=== PATIENT | male | born 1960 | race Caucasian/White ===

== ENCOUNTER 2016-10-13 09:23 | Inpatient (IN) | payer BC, OTHER ==
[2016-11-24] MEDS ORDERED: ceFAZolin SODIUM 1 GM VIAL IV PRN (06:00)
[2016-11-24] MEDS: RINGERS SOLUTION,LACTATED 1,000 ML IV PRN ×2 (07:23→08:15)
[2016-11-24] MEDS ORDERED: RINGERS SOLUTION,LACTATED 1,000 ML IV ONE (07:40)
[2016-11-24] MEDS: ROPIVACAINE HCL/PF 100 MG, EPINEPHrine 0.2 MG, KETOROLAC TROMETHAMINE 30 MG in NORMAL S... IJ PRN ×2 (08:39→09:15)
[2016-11-24] MEDS: TRANEXAMIC ACID 1,000 MG in NORMAL SALINE 100 ML IV PRN ×2 (08:39→09:15)
[2016-11-24] MEDS ORDERED: NALOXONE HCL 1 MG/1 ML SYRG IV PRN (09:44)
[2016-11-24] MEDS ORDERED: HYDROmorphone HCL 1 MG/ML DISP.SYRIN IV PRN (09:52)
[2016-11-24] MEDS ORDERED: MAGNESIUM HYDROXIDE 30 ML UDC PO PRN (09:52)
[2016-11-24] MEDS ORDERED: ONDANSETRON HCL/PF 2 MG/ML VIAL IV PRN (09:52)
[2016-11-24] MEDS ORDERED: diphenhydrAMINE HCL 50 MG/ML VIAL IV PRN (09:52)
[2016-11-24] MEDS ORDERED: PROMETHAZINE HCL 5 MG in DEXTROSE 5 % IN WATER 50 ML IV PRN ×2 (09:52)
[2016-11-24] MEDS ORDERED: ZOLPIDEM TARTRATE 5 MG TABLET PO PRN (09:52)
[2016-11-24] MEDS ORDERED: MAG HYDROX/ALUMINUM HYD/SIMETH 30 ML UDC PO PRN (09:52)
[2016-11-24] MEDS ORDERED: ACETAMINOPHEN 500 MG TABLET PO PRN (09:52)
--- NOTE | 2016-11-24 09:56 | OR ---
Operative Report - Dictated Report Narrative: Date: 11/24/2016 Preoperative diagnosis: Right Knee degenerative joint disease. Postoperative diagnosis: Right Knee degenerative joint disease. Procedure: Right Total knee arthroplasty. Surgeon: Jaime Ruby M.D. Lumber Tripper: Anuel Pandey PA-C Anesthesia: Spinal with regional block and local periarticular joint injection. Complications: None Specimens: Bone for disposal. Estimated blood loss: Minimal. Tourniquet time: 90 Minutes at 325 millimeters of mercury. Retained implants: Depuy Attune size 8 right lugged cemented posterior stabilized femoral component. Size 8 fixed-bearing cemented tibial platform. 8 by 6 millimeter posterior stabilized cross-linked tibial insert. 41 millimeter medialized patella button. Indications: Mr. Ortiz is a 56-year-old gentleman who has bilateral knee arthrosis and is having staged total knees. He had long-standing pain and wished to have his right followed by left total knee. This patient was followed in my clinic for period of time with significant complaints of right knee pain consistent with arthritic changes. They had failed conservative measures including, but not limited to, activity modification, passage of time, medications, and other conservative measures. Patient wished to proceed with surgical treatment. The risks, benefits, and alternatives were discussed in clinic. The risks of , blood clots, bleeding, infection, nerve/tendon blood vessel/ injury, malposition of components, intraoperative fracture, postoperative limited range of motion, persistent pain, failure of components, and need for additional procedures. Patient wished to proceed consent was obtained after answering all questions. Procedure: After marking the correct extremity on the floor, the patient was taken to the operating room. A timeout was performed. IV antibiotics consisting of Ancef were administered prior to the procedure. A regional followed by spinal anesthetic was induced by anesthesia on the operative table with all bony prominences well-padded. Miller catheter was placed, and a bump was placed under the operative side buttock. SCDs and MIRA hose were utilized on the nonoperative leg. A well-padded tourniquet was applied to the operative thigh. The operative leg was then pre-scrubbed with alcoho,l prepped, and draped in a standard sterile fashion. After exsanguinating the extremity with an Esmarch bandage, the tourniquet was inflated. After marking out the anterior knee for standard incision centered over the patella, the skin was incised and dissected down to the joint retinaculum. The joint retinaculum was marked out as well as the horizontal axis of the patella, and a standard medial parapatellar arthrotomy was then made. The most proximal aspect of the quadriceps tendon and the patella tendon insertion were protected from release. A partial synovectomy was performed as well as a resection of the infrapatellar fat pad. The distal femoral fat pad proximal to the trochlea was also resected using cautery. The soft tissues were elevated off the medial aspect of the proximal tibia using a Shaw elevator ensuring that we did not transect the medial collateral ligament. Upon initial evaluation range of motion was approximately 0 degrees to 135 degrees of flexion. There were signs of advanced arthrosis in the medial, lateral, and patellofemoral joint spaces. There were large marginal osteophytes which were removed with a rongeur. The knee was hyperflexed and the patella was tucked laterally. Protecting the surrounding soft tissues with Homans, an entry drill was placed down the femoral canal using Whitesides line for guidance into the entry point. The intramedullary femoral alignment emilia was utilized in order to cut the distal femur in 5 degrees of valgus resecting 10 millimeters of bone. Next the distal femur was sized to a size 8. A posterior referencing guide was utilized to place the distal femoral cutting block in 3 degrees of external rotation. This was pinned into place. The rotation was confirmed both visually and based on anatomic landmarks. The 4 in 1 cutting jig of the appropriate size was utilized in order to make all bony cuts. The angle wing was used to ensure no notching. Retractors were utilized in order to protect surrounding soft tissues. This cut did not result in any excessive notching. We then cut the box centered over the distal femur. This allowed for resection of the anterior and posterior cruciate ligaments. I then turned my attention to the preparation of the tibia. Using an extra medullary tibial alignment emilia, 3 millimeters of bone was resected off the medial articular surface. This was made perpendicular to the mechanical axis of the joint with the alignment emilia centered over the ankle mortise. The alignment emilia was checked and was noted to be parallel to the mechanical axis, centered over the medial one third of the tibial tubercle, paralleling the anterior surface of the tibia. We then turned our attention to the remaining meniscus and soft tissues. These were removed while protecting the surrounding ligaments and soft tissues. The marginal osteophytes off the anterior, posterior, medial, lateral aspects of the femur and tibia were removed. The tibia was sized out to a size 8. Next the tibia was drilled and punched in an externally rotated position. Next the trial femur and a series of tibial inserts were utilized in order to allow for full extension and maximal flexion. It was found that a 6 millimeter insert gave the best range of motion and stability at multiple flexion points as well as at full extension there was less than 2 mm of gapping both medially and laterally. There is minimal anterior translation with the knee at 90 degrees of flexion and no signs of being able to dislocate the knee. The patella was then prepared. The initial thickness was 25 millimeters. This was reamed down to 15 millimeters parallel to the anterior surface of the patella. It was sized out to a size 41 medialized patella button. This was then drilled and trialed. Without any medial restraint the patella tracked appropriately and did not sublux or dislocate. At this point, it was felt these were the appropriate sized implants, and all trials were removed. The standard periarticular joint injection consisting of ropivacaine, Toradol, and epinephrine were injected into the periarticular joint tissues. The bony surfaces were thoroughly irrigated with a pulsatile- suction saline irrigation device. A bone plug from the prior resected anterior chamfer cut was placed into the drill hole at the distal femur. The bony surfaces were then dried in preparation for placement of the implants. The cement was vacuum mixed per the pipe and test supervisor's instructions. The cement was placed on the dry bony surfaces and posterior aspect of the implants. The implants were impacted into place, removing all extruded cement. At this point anesthesia administered tranexamic acid per protocol intravenously. The knee was placed in extension with axial loading with the trial insert while the cement cured. Once the cement cured, all remaining extruded cement was removed. The knee was placed through a range of motion with the trial insert to ensure appropriate range of motion and stability. Final range of motion was approximately 0 to 130 degrees. The knee was again thoroughly irrigated with pulsatile saline lavage. The final polyethylene insert was then impacted into place ensuring no retained soft tissues. The remaining periarticular joint injection was injected. A medium Hemovac drain was placed exiting superior laterally. The knee was then placed over a triangle and the arthrotomy was closed with interrupted #1 Vicryl after thoroughly irrigating the joint. The deep and subcutaneous tissues were closed with interrupted oh and 3-0 Vicryl respectively. Skin was closed with a running subcutaneous 3-0 Monocryl and gary. Xeroform, 4 x 4's, ABD, Sof-Rol, and a full leg Neymar wrap were applied. All sponge, needle, blade, and instrument counts were correct prior to closing the wounds. Postoperative condition: The patient was awoken and transferred to the postanesthesia care unit in stable condition. Plan is to be admitted to the inpatient medical/surgical floor postoperatively for 24 hours of IV antibiotics , physical therapy, occupational therapy, and medical comanagement. Patient will be weightbearing as tolerated with range of motion as tolerated. DVT prophylaxis will be with SCDs, MIRA hose, and pharmacological anticoagulation. Anticipated hospital stay is approximately 2-4 days.
[2016-11-24] MEDS: DEXTROSE 5%-LACTATED RINGERS 1,000 ML IV PRN ×2 (10:47→19:49)
[2016-11-24] MEDS: KETOROLAC TROMETHAMINE 15 MG/ML VIAL IV SCH ×3 (10:55→22:56)
[2016-11-24] MEDS: ceFAZolin SODIUM 1 GM in DEXTROSE 5 % IN WATER 100 ML IV SCH ×6 (12:06→22:55)
[2016-11-24] MEDS: oxyCODONE HCL/ACETAMINOPHEN 1 TAB TABLET PO PRN ×2 (18:46→22:55)
[2016-11-24] MEDS ORDERED: MORPHINE SULFATE 15 MG TABLET.SA PO ONE (19:51)
[2016-11-24] MEDS: MORPHINE SULFATE 15 MG TABLET.SA PO SCH (20:15)
[2016-11-24] MEDS: SENNOSIDES/DOCUSATE SODIUM 1 TAB TABLET PO SCH (20:15)
--- NOTE | 2016-11-24 23:28 | PN ---
Subjective - Date and Time Seen Date: 11/24/16 Time: 16:54 Subjective Narrative: Doing well, no concerns. No fever, chills, n/v. Pain controlled. Objective - Vitals Vitals: Last Vital Signs Temp 36.7 C 11/24/16 22:18 Pulse 80 11/24/16 22:18 Resp 14 11/24/16 22:18 BP 111/61 11/24/16 22:18 Pulse Ox 94 11/24/16 22:18 - Exam Constitutional: Present: Alert, Oriented x3, Cooperative Respiratory: Present: lungs clear, normal breath sounds Cardiovascular/Chest: Present: regular rate, rhythm, no murmur Cauti Physician Documentation - Urinary Catheter Management Urethral (Miller) Date of Insertion: 11/24/16 Time of Insertion: 08:10 Assessment/Plan - Problems/Diagnosis (1) Status post total right knee replacement Problem: Acute Narrative: No medical concerns. Continue PT.
[2016-11-25] MEDS: KETOROLAC TROMETHAMINE 15 MG/ML VIAL IV SCH ×4 (04:41→23:03)
[2016-11-25 05:47] LABS: Hematocrit 36.4 % (42.0-52.0); Hemoglobin 12.3 gm/dL (13.5-18.0); Mean Cell Volume 90.8 fl (78-100); Mean Corpuscular Hemoglobin 30.7 pg (27-31); Mean Corpuscular Hgb Conc 33.8 g/dl (32-36); Mean Platelet Volume 9.6 fl (6.0-9.5); Platelet Count 218 K/mm3 (150-450); Red Blood Count 4.01 M/mm3 (4.7-6.0); Red Cell Distribution Width 11.9 % (11.5-14.0)
[2016-11-25 06:09] LABS: Anion Gap 12.9 mmol/L (6.8-13.8); BUN/Creatinine Ratio 10.5 (9.0-21.6); Calcium * 8.3 mg/dL (7.9-10.9); Carbon Dioxide 26.3 mmol/L (24-32.6); Estimated Creat Clear 84.2; Potassium 4.2 mmol/L (3.4-4.6)
[2016-11-25] MEDS: oxyCODONE HCL/ACETAMINOPHEN 1 TAB TABLET PO PRN ×4 (06:58→19:40)
[2016-11-25] MEDS ORDERED: ceFAZolin SODIUM 2 GM in DEXTROSE 5 % IN WATER 50 ML IV PRN ×2 (08:21)
--- NOTE | 2016-11-25 08:27 | PN ---
Subjective - Date and Time Seen Date: 11/25/16 Time: 08:24 Subjective Narrative: Patient reports he is doing well. Anterior knee still numb. Some pain posterior knee. Had some breakthrough bleeding in his dressings last night. Reports wants to proceed with left knee tomorrow. Objective - Vitals Vitals: Last Vital Signs Temp 37.0 C 11/25/16 07:10 Pulse 80 11/25/16 07:10 Resp 16 11/25/16 07:10 BP 117/66 11/25/16 07:10 Pulse Ox 96 11/25/16 07:10 - Abnormal Lab Findings Abnormal Lab Findings: Abnormal Lab Results 11/25/16 Range/Units 05:30 RBC 4.01 L (4.7-6.0) M/mm3 Hgb 12.3 L (13.5-18.0) gm/dL Hct 36.4 L (42.0-52.0) % MPV 9.6 H (6.0-9.5) fl - Exam Exam Narrative: Calf supple. N/V intact. Drain intact-minimal drainage. Break through bleeding dry on dressings. Unable to do straight leg raise. Constitutional: Present: Alert, Oriented x3, Cooperative, No distress Cauti Physician Documentation - Urinary Catheter Management Urethral (Miller) Date of Insertion: 11/24/16 Time of Insertion: 08:10 Assessment/Plan - Problems/Diagnosis (1) Status post total right knee replacement Problem: Acute (2) Acute blood loss anemia Problem: Acute
[2016-11-25] MEDS: ENOXAPARIN SODIUM 40 MG/0.4 ML SYRG SC SCH (08:32)
[2016-11-25] MEDS: MORPHINE SULFATE 15 MG TABLET.SA PO SCH ×2 (08:32→21:12)
[2016-11-25] MEDS: SENNOSIDES/DOCUSATE SODIUM 1 TAB TABLET PO SCH ×2 (13:03→21:10)
--- NOTE | 2016-11-25 23:52 | PN ---
Subjective - Date and Time Seen Date: 11/25/16 Time: 17:15 Subjective Narrative: Pain controlled, no n/v/f/c. Objective - Vitals Vitals: Last Vital Signs Temp 37.1 C 11/25/16 23:45 Pulse 83 11/25/16 23:45 Resp 16 11/25/16 23:45 BP 134/85 11/25/16 23:45 Pulse Ox 95 11/25/16 23:45 - Abnormal Lab Findings Abnormal Lab Findings: Abnormal Lab Results 11/25/16 Range/Units 05:30 RBC 4.01 L (4.7-6.0) M/mm3 Hgb 12.3 L (13.5-18.0) gm/dL Hct 36.4 L (42.0-52.0) % MPV 9.6 H (6.0-9.5) fl - Exam Constitutional: Present: Alert, Oriented x3, Cooperative ENT Exam: Present: hearing grossly normal Respiratory: Present: lungs clear, normal breath sounds Cardiovascular/Chest: Present: regular rate, rhythm, no murmur Abdomen: Present: Normal bowel sounds, soft, nontender, nondistended Cauti Physician Documentation - Urinary Catheter Management Urethral (Miller) Date of Insertion: 11/24/16 Time of Insertion: 08:10 Assessment/Plan - Problems/Diagnosis (1) Status post total right knee replacement Problem: Acute Narrative: Doing well, no concerns. Ok to proceed with seconda nee replacement tomorrow.
[2016-11-26] MEDS: KETOROLAC TROMETHAMINE 15 MG/ML VIAL IV SCH ×4 (04:15→23:08)
[2016-11-26] MEDS ORDERED: ROPIVACAINE HCL/PF 100 MG, KETOROLAC TROMETHAMINE 30 MG, EPINEPHrine 0.2 MG in NORMAL S... IJ PRN (06:00)
[2016-11-26] MEDS ORDERED: TRANEXAMIC ACID 1,000 MG in NORMAL SALINE 100 ML IV PRN (06:00)
[2016-11-26] MEDS ORDERED: RINGERS SOLUTION,LACTATED 1,000 ML IV PRN ×2 (06:00→06:32)
[2016-11-26] MEDS ORDERED: ceFAZolin SODIUM 1 GM VIAL IV PRN (06:00)
[2016-11-26 06:06] LABS: Hematocrit 35.4 % (42.0-52.0); Hemoglobin 11.9 gm/dL (13.5-18.0); Mean Cell Volume 90.3 fl (78-100); Mean Corpuscular Hemoglobin 30.4 pg (27-31); Mean Corpuscular Hgb Conc 33.6 g/dl (32-36); Mean Platelet Volume 9.7 fl (6.0-9.5); Platelet Count 200 K/mm3 (150-450); Red Blood Count 3.92 M/mm3 (4.7-6.0); Red Cell Distribution Width 11.9 % (11.5-14.0); White Blood Count 8.9 K/mm3 (4.0-10.5)
[2016-11-26 06:20] LABS: Anion Gap 10.8 mmol/L (6.8-13.8); BUN/Creatinine Ratio 12.9 (9.0-21.6); Calcium * 8.6 mg/dL (7.9-10.9); Carbon Dioxide 27.6 mmol/L (24-32.6); Estimated Creat Clear 87.5; Potassium 4.4 mmol/L (3.4-4.6)
[2016-11-26] MEDS ORDERED: RINGERS SOLUTION,LACTATED 800 ML IV ONE (07:50)
[2016-11-26] MEDS: MORPHINE SULFATE 15 MG TABLET.SA PO SCH ×3 (07:50→21:05)
[2016-11-26] MEDS ORDERED: RINGERS SOLUTION,LACTATED 1,000 ML IV ONE (09:00)
[2016-11-26] MEDS ORDERED: DEXTROSE 5%-LACTATED RINGERS 1,000 ML IV PRN (10:10)
--- NOTE | 2016-11-26 10:14 | OR ---
Operative Report - Dictated Report Narrative: Date: 11/26/2016 Preoperative diagnosis: Left Knee degenerative joint disease. Postoperative diagnosis: Left Knee degenerative joint disease. Procedure: Left Total knee arthroplasty. Surgeon: Jaime Ruby M.D. Regulatory Affairs Intern: Anuel Pandey PA-C Anesthesia: Spinal with regional block and local periarticular joint injection. Complications: None Specimens: Bone for disposal. Estimated blood loss: Minimal. Tourniquet time: 94 Minutes at 325 millimeters of mercury. Retained implants: Depuy Attune size 8 left lugged cemented posterior stabilized femoral component. Size 8 fixed-bearing cemented tibial platform. 8 by 6 millimeter posterior stabilized cross-linked tibial insert. 41 millimeter medialized patella button. Indications: Mr. Ortiz is a 56-year-old gentleman who underwent right total knee arthroplasty 2 days ago and is here today for his left. This patient was followed in my clinic for period of time with significant complaints of left knee pain consistent with arthritic changes. They had failed conservative measures including, but not limited to, activity modification, passage of time, medications, and other conservative measures. Patient wished to proceed with surgical treatment. The risks, benefits, and alternatives were discussed in clinic. The risks of , blood clots, bleeding, infection, nerve/tendon blood vessel/ injury, malposition of components, intraoperative fracture, postoperative limited range of motion, persistent pain, failure of components, and need for additional procedures. Patient wished to proceed consent was obtained after answering all questions. Procedure: After marking the correct extremity on the floor, the patient was taken to the operating room. A timeout was performed. IV antibiotics consisting of Ancef were administered prior to the procedure. A regional followed by spinal anesthetic was induced by anesthesia on the operative table with all bony prominences well-padded. Miller catheter was placed, and a bump was placed under the operative side buttock. SCDs and MIRA hose were utilized on the nonoperative leg. A well-padded tourniquet was applied to the operative thigh. The operative leg was then pre-scrubbed with alcohol prepped, and draped in a standard sterile fashion. After exsanguinating the extremity with an Esmarch bandage, the tourniquet was inflated. After marking out the anterior knee for standard incision centered over the patella, the skin was incised and dissected down to the joint retinaculum. The joint retinaculum was marked out as well as the horizontal axis of the patella, and a standard medial parapatellar arthrotomy was then made. The most proximal aspect of the quadriceps tendon and the patella tendon insertion were protected from release. A partial synovectomy was performed as well as a resection of the infrapatellar fat pad. The distal femoral fat pad proximal to the trochlea was also resected using cautery. The soft tissues were elevated off the medial aspect of the proximal tibia using a Shaw elevator ensuring that we did not transect the medial collateral ligament. Upon initial evaluation range of motion was approximately 0 degrees to 130 degrees of flexion. There were signs of advanced arthrosis in the medial and patellofemoral joint spaces. There were large marginal osteophytes which were removed with a rongeur. The knee was hyperflexed and the patella was tucked laterally. Protecting the surrounding soft tissues with Homans, an entry drill was placed down the femoral canal using Whitesides line for guidance into the entry point. The intramedullary femoral alignment emilia was utilized in order to cut the distal femur in 5 degrees of valgus resecting 10 millimeters of bone. Next the distal femur was sized to a size 8. A posterior referencing guide was utilized to place the distal femoral cutting block in 3 degrees of external rotation. This was pinned into place. The rotation was confirmed both visually and based on anatomic landmarks. The 4 in 1 cutting jig of the appropriate size was utilized in order to make all bony cuts. The angle wing was used to ensure no notching. Retractors were utilized in order to protect surrounding soft tissues. This cut did not result in any excessive notching. We then cut the box centered over the distal femur. This allowed for resection of the anterior and posterior cruciate ligaments. I then turned my attention to the preparation of the tibia. Using an extra medullary tibial alignment emilia, 3 millimeters of bone was resected off the medial articular surface. This was made perpendicular to the mechanical axis of the joint with the alignment emilia centered over the ankle mortise. The alignment emilia was checked and was noted to be parallel to the mechanical axis, centered over the medial one third of the tibial tubercle, paralleling the anterior surface of the tibia. We then turned our attention to the remaining meniscus and soft tissues. These were removed while protecting the surrounding ligaments and soft tissues. The marginal osteophytes off the anterior, posterior, medial, lateral aspects of the femur and tibia were removed. The tibia was sized out to a size 8. Next the tibia was drilled and punched in an externally rotated position. Next the trial femur and a series of tibial inserts were utilized in order to allow for full extension and maximal flexion. It was found that a 6 millimeter insert gave the best range of motion and stability at multiple flexion points as well as at full extension there was less than 2 mm of gapping both medially and laterally. There is minimal anterior translation with the knee at 90 degrees of flexion and no signs of being able to dislocate the knee. The patella was then prepared. The initial thickness was 25 millimeters. This was reamed down to 15 millimeters parallel to the anterior surface of the patella. It was sized out to a size 41 medialized patella button. This was then drilled and trialed. Without any medial restraint the patella tracked appropriately and did not sublux or dislocate. At this point, it was felt these were the appropriate sized implants, and all trials were removed. The standard periarticular joint injection consisting of ropivacaine, Toradol, and epinephrine were injected into the periarticular joint tissues. The bony surfaces were thoroughly irrigated with a pulsatile- suction saline irrigation device. A bone plug from the prior resected anterior chamfer cut was placed into the drill hole at the distal femur. The bony surfaces were then dried in preparation for placement of the implants. The cement was vacuum mixed per the school bus mechanic's instructions. The cement was placed on the dry bony surfaces and posterior aspect of the implants. The implants were impacted into place, removing all extruded cement. At this point anesthesia administered tranexamic acid per protocol intravenously. The knee was placed in extension with axial loading with the trial insert while the cement cured. Once the cement cured, all remaining extruded cement was removed. The knee was placed through a range of motion with the trial insert to ensure appropriate range of motion and stability. Final range of motion was approximately 0 to 130 degrees. The knee was again thoroughly irrigated with pulsatile saline lavage. The final polyethylene insert was then impacted into place ensuring no retained soft tissues. The remaining periarticular joint injection was injected. A medium Hemovac drain was placed exiting superior laterally. The knee was then placed over a triangle and the arthrotomy was closed with interrupted #1 Vicryl after thoroughly irrigating the joint. The deep and subcutaneous tissues were closed with interrupted oh and 3-0 Vicryl respectively. Skin was closed with a running subcutaneous 3-0 Monocryl and gary. Xeroform, 4 x 4's, ABD, Sof-Rol, and a full leg Neymar wrap were applied. All sponge, needle, blade, and instrument counts were correct prior to closing the wounds. Postoperative condition: The patient was awoken and transferred to the postanesthesia care unit in stable condition. Plan is to be admitted to the inpatient medical/surgical floor postoperatively for 24 hours of IV antibiotics , physical therapy, occupational therapy, and medical comanagement. Patient will be weightbearing as tolerated with range of motion as tolerated. DVT prophylaxis will be with SCDs, MIRA hose, and pharmacological anticoagulation. Anticipated hospital stay is approximately 2-4 days.
[2016-11-26] MEDS ORDERED: clonazePAM 0.5 MG TABLET PO PRN (14:27)
[2016-11-26] MEDS: oxyCODONE HCL/ACETAMINOPHEN 1 TAB TABLET PO PRN ×3 (14:33→23:08)
[2016-11-26] MEDS: ceFAZolin SODIUM 1 GM in DEXTROSE 5 % IN WATER 100 ML IV SCH ×4 (14:36→21:06)
--- NOTE | 2016-11-26 16:11 | PN ---
Subjective - Date and Time Seen Date: 11/26/16 Time: 16:11 Subjective Narrative: No concerns. Doing well. Pain controlled. Objective - Vitals Vitals: Last Vital Signs Temp 36.7 C 11/26/16 11:33 Pulse 98 11/26/16 15:45 Resp 15 11/26/16 15:45 BP 142/70 11/26/16 15:45 Pulse Ox 95 11/26/16 15:45 - Abnormal Lab Findings Abnormal Lab Findings: Abnormal Lab Results 11/26/16 Range/Units 05:51 RBC 3.92 L (4.7-6.0) M/mm3 Hgb 11.9 L (13.5-18.0) gm/dL Hct 35.4 L (42.0-52.0) % MPV 9.7 H (6.0-9.5) fl - Exam Constitutional: Present: Alert, Oriented x3, Cooperative ENT Exam: Present: hearing grossly normal Respiratory: Present: lungs clear, normal breath sounds Cardiovascular/Chest: Present: regular rate, rhythm, no murmur Abdomen: Present: Normal bowel sounds, soft, nontender, nondistended Cauti Physician Documentation - Urinary Catheter Management Urethral (Miller) Date of Insertion: 11/24/16 Time of Insertion: 08:10 Assessment/Plan - Problems/Diagnosis (1) Status post total bilateral knee replacement Problem: Acute Narrative: Doing well, no medical concerns. (2) Acute blood loss anemia Problem: Acute Narrative: Mild, will monitor. (3) Leg cramping Problem: Acute Narrative: Will check vitamin D level.
[2016-11-26] MEDS: SENNOSIDES/DOCUSATE SODIUM 1 TAB TABLET PO SCH (21:05)
[2016-11-27] MEDS: ceFAZolin SODIUM 1 GM in DEXTROSE 5 % IN WATER 100 ML IV SCH ×2 (02:06)
[2016-11-27] MEDS: oxyCODONE HCL/ACETAMINOPHEN 1 TAB TABLET PO PRN ×5 (05:07→23:03)
[2016-11-27] MEDS: KETOROLAC TROMETHAMINE 15 MG/ML VIAL IV SCH ×4 (05:07→23:05)
[2016-11-27 05:45] LABS: Hematocrit 32.1 % (42.0-52.0); Hemoglobin 10.7 gm/dL (13.5-18.0); Mean Corpuscular Hemoglobin 30.7 pg (27-31); Mean Corpuscular Hgb Conc 33.3 g/dl (32-36); Mean Platelet Volume 9.9 fl (6.0-9.5); Platelet Count 194 K/mm3 (150-450); Red Blood Count 3.49 M/mm3 (4.7-6.0); Red Cell Distribution Width 11.9 % (11.5-14.0); White Blood Count 8.1 K/mm3 (4.0-10.5)
[2016-11-27 05:59] LABS: Anion Gap 11.9 mmol/L (6.8-13.8); Calcium * 8.3 mg/dL (7.9-10.9); Carbon Dioxide 28.4 mmol/L (24-32.6); Estimated Creat Clear 82.6; Potassium 4.3 mmol/L (3.4-4.6)
--- NOTE | 2016-11-27 08:17 | PN ---
Subjective - Date and Time Seen Date: 11/27/16 Time: 08:14 Subjective Narrative: Patient reports no complaints. Pain controlled. No nausea. No lightheadedness or dizziness. No CP or SOB. Objective Objective Narrative: LLE bandages C/D/I. N/V intact. Calf supple. Drian intact. Right leg dressings C/D/I. N/V intact. Calf supple. - Vitals Vitals: Last Vital Signs Temp 36.8 C 11/27/16 07:45 Pulse 84 11/27/16 07:45 Resp 18 11/27/16 07:45 BP 118/66 11/27/16 07:45 Pulse Ox 98 11/27/16 07:45 - Abnormal Lab Findings Abnormal Lab Findings: Abnormal Lab Results 11/27/16 11/27/16 Range/Units 04:57 04:57 RBC 3.49 L (4.7-6.0) M/mm3 Hgb 10.7 L (13.5-18.0) gm/dL Hct 32.1 L (42.0-52.0) % MPV 9.9 H (6.0-9.5) fl Random Glucose 125 H (70-110) mg/dL - Exam Constitutional: Present: Alert, Oriented x3, Cooperative, No distress Cauti Physician Documentation - Urinary Catheter Management Urethral (Miller) Date of Insertion: 11/24/16 Time of Insertion: 08:10 Assessment/Plan - Problems/Diagnosis (1) Status post total right knee replacement Problem: Acute Narrative: PT. Anticoagulation. Pain control. (2) Acute blood loss anemia Problem: Acute Narrative: Asymptomatic. Recheck labs tomorrow.
[2016-11-27] MEDS: MORPHINE SULFATE 15 MG TABLET.SA PO SCH ×2 (09:14→20:10)
[2016-11-27] MEDS: ENOXAPARIN SODIUM 40 MG/0.4 ML SYRG SC SCH (09:14)
--- NOTE | 2016-11-27 17:28 | PN ---
Subjective - Date and Time Seen Date: 11/27/16 Time: 17:12 Subjective Narrative: Reports therapy is going well. Still having some leg cramps. Had bowel movement today. Pain is controlled. Objective - Vitals Vitals: Last Vital Signs Temp 36.6 C 11/27/16 11:38 Pulse 90 11/27/16 11:38 Resp 18 11/27/16 11:38 BP 131/78 11/27/16 11:38 Pulse Ox 94 11/27/16 11:38 - Abnormal Lab Findings Abnormal Lab Findings: Abnormal Lab Results 11/27/16 11/27/16 Range/Units 04:57 04:57 RBC 3.49 L (4.7-6.0) M/mm3 Hgb 10.7 L (13.5-18.0) gm/dL Hct 32.1 L (42.0-52.0) % MPV 9.9 H (6.0-9.5) fl Random Glucose 125 H (70-110) mg/dL - Exam Constitutional: Present: Alert, Oriented x3, Cooperative ENT Exam: Present: hearing grossly normal Respiratory: Present: lungs clear, normal breath sounds Cardiovascular/Chest: Present: regular rate, rhythm, no murmur Abdomen: Present: Normal bowel sounds, soft, nontender, nondistended [facility] Physician Documentation - Urinary Catheter Management Urethral (Miller) Date of Insertion: 11/24/16 Time of Insertion: 08:10 Date of Removal: 11/27/16 Time of Removal: 06:30 Assessment/Plan - Problems/Diagnosis (1) Status post total bilateral knee replacement Problem: Acute Narrative: Doing well with therapy, no medical concerns. (2) Acute blood loss anemia Problem: Acute Narrative: Stable, will monitor. (3) Leg cramping Problem: Acute Narrative: Vitamin D pending. No electrolyte abnormality.
[2016-11-27] MEDS: SENNOSIDES/DOCUSATE SODIUM 1 TAB TABLET PO SCH (20:10)
[2016-11-28] MEDS: oxyCODONE HCL/ACETAMINOPHEN 1 TAB TABLET PO PRN ×2 (03:03→11:19)
[2016-11-28] MEDS: KETOROLAC TROMETHAMINE 15 MG/ML VIAL IV SCH (05:23)
[2016-11-28 06:16] LABS: Hematocrit 28.8 % (42.0-52.0); Hemoglobin 9.7 gm/dL (13.5-18.0); Mean Cell Volume 90.9 fl (78-100); Mean Corpuscular Hemoglobin 30.6 pg (27-31); Mean Corpuscular Hgb Conc 33.7 g/dl (32-36); Mean Platelet Volume 10.1 fl (6.0-9.5); Platelet Count 216 K/mm3 (150-450); Red Blood Count 3.17 M/mm3 (4.7-6.0); Red Cell Distribution Width 11.8 % (11.5-14.0); White Blood Count 8.1 K/mm3 (4.0-10.5)
[2016-11-28 06:40] LABS: Anion Gap 10.7 mmol/L (6.8-13.8); BUN/Creatinine Ratio 10.5 (9.0-21.6); Calcium * 8.3 mg/dL (7.9-10.9); Carbon Dioxide 29.5 mmol/L (24-32.6); Estimated Creat Clear 77.5; Potassium 4.2 mmol/L (3.4-4.6)
[2016-11-28] MEDS: ENOXAPARIN SODIUM 40 MG/0.4 ML SYRG SC SCH (09:05)
[2016-11-28] MEDS: MORPHINE SULFATE 15 MG TABLET.SA PO SCH (09:24)
[2016-11-28 11:16] VITALS: BP 158/86
--- NOTE | 2016-11-28 13:26 | DS ---
(1) Acute blood loss anemia Problem: Acute (2) Status post total bilateral knee replacement Problem: Acute Description of Stay: Mr. Ortiz was admitted to the floor after undergoing staged bilateral total knee arthroplasty. Tolerated this well. Was admitted to the floor postoperatively for 24 hours of IV antibiotics, pain control, medical comanagement, and occupational and physical therapy. OT and PT were consulted to assist with activities of daily living and ambulation. Was made weightbearing as tolerated with range of motion as tolerated. Pain was initially controlled with IV regimen. This was transitioned to oral once tolerating a by mouth intake. Was resumed on home diet and medications. He had his first knee on the day of admission on the right and subsequently had his left total knee 2 days later. Had a Miller catheter inserted and the operating room which was discontinued on postoperative day 1. A drain was placed intraoperatively into the knee which was discontinued on postoperative day 1. Lovenox SCD and MIRA hose were utilized for DVT prophylaxis. Vital signs remained stable to the hospital course. Serial labs were obtained which showed a final hemoglobin of 9.7 grams. BMP was reviewed and was stable. Physical examination throughout the hospital course showed an extremity that had sensation that was intact to light touch, palpable pulses, a benign wound, motor intact to the toes, ankle, and knee. Knee range of motion was approximately 0 degrees to 70 degrees. Once an oral pain regimen was tolerated and physical therapy goals were met, it was felt that they were stable for discharge to home. Instructions: Continue with weightbearing as tolerated and range of motion as tolerated. Keep the wound clean and dry. Cover with dry gauze and tape. Change every 2-3 days as needed. Cover wound while showering. Continue with physical therapy. Resume home diet. Report any fever over 101.5 Fahrenheit, uncontrolled pain, increased drainage, foul odor of drainage, new or increased calf pain or shortness of breath, or any other significant complaints. A 325mg dialy aspirin will be started after finishing anticoagulation if not allergic. Continue with MIRA hose on the operative extremity until instructed otherwise. No driving until instructed otherwise. Follow up in approximately 10-14 days. Procedures Performed: see notes below List Procedures: Bilateral total knee arthroplasty Discharge Disposition: Home self care Disposition: Home self-care Condition: Good Discharge Activity: Activity as tolerated, Weight bearing Discharge Diet: General/regular food Care Home Therapy: Physicial Therapy Referrals: Mert Craven DO [Primary Care Provider] - Prescriptions (Any new or edited meds): Dabigatran Etexilate Mesylate [Pradaxa] 220 mg PO DAILY #12 capsule Morphine Sulfate [Ms Contin] 15 mg PO Q12H #30 tablet.sa Sennosides/Docusate Sodium [Senokot-S] 2 tab PO HS #30 tablet oxyCODONE HCL/ACETAMINOPHEN [Percocet 5 MG/325 MG] 2 tab PO Q4H PRN #90 tablet PRN Reason: Moderate Pain Complete Home Medications List: Complete Home Medication List: Dabigatran Etexilate Mesylate [Pradaxa] 220 mg PO DAILY #12 capsule 11/28/16 Morphine Sulfate [Ms Contin] 15 mg PO Q12H #30 tablet.sa 11/28/16 Sennosides/Docusate Sodium [Senokot-S] 2 tab PO HS #30 tablet 11/28/16 oxyCODONE HCL/ACETAMINOPHEN [Percocet 5 MG/325 MG] 2 tab PO Q4H PRN #90 tablet 11/28/16
[2016-11-28 21:14] LABS: Vitamin D, 25-OH, D3 11 ng/mL
== END 2016-11-28 14:55 | disposition home or self-care (01) | DRG 462 ==
LOC: MS 11-24 06:02
PROVIDERS: ADMIT Orthopaedic Surgery; ATTEND Orthopaedic Surgery
PROC: 0SRC0J9 Replacement of Right Knee Joint with Synthetic Substitute, Cemented, Open Approach (ICD-10-PCS; principal; 2016-11-24 08:00)
PROC: 0SRD0J9 Replacement of Left Knee Joint with Synthetic Substitute, Cemented, Open Approach (ICD-10-PCS; 2016-11-26)
DX: M17.0 Bilateral primary osteoarthritis of knee (principal); D62 Acute posthemorrhagic anemia; Z87.891 Personal history of nicotine dependence